=== PATIENT | male | born 1975 | race Caucasian/White ===

== ENCOUNTER 2022-05-22 00:32 | Emergency (ER) | payer BC, MEDICAID, OTHER ==
[~2022-05-22] VITALS: Ht 188 cm; Wt 62.6 kg
[2022-05-22] MEDS ORDERED: HYDROcodone-ACET 5/325MG TAB PO ONE (00:45)
[2022-05-22] MEDS ORDERED: cloNIDine HCL 0.1 MG TAB PO ONE (00:45)
[2022-05-22 01:33] LABS: Albumin 3.6 g/dL (3.4-5.0); BUN/Creatinine Ratio 18.7 (10.0-20.0); Calcium 8.7 mg/dL (8.5-10.1); Magnesium 2.3 mg/dL (1.6-2.6); Potassium 3.4 mmol/L (3.5-5.1)
[2022-05-22 01:36] LABS: Bilirubin, Total 0.4 mg/dL (0.2-1.0); Total Protein 7.9 g/dL (6.4-8.2)
[2022-05-22 01:38] LABS: Basophils # (auto) 0 10 ^3/uL (0-0.2); Basophils % (auto) 0.4 % (0.0-2.0); Eosinophils # (auto) 0.2 10 ^3/uL (0-0.8); Eosinophils % (auto) 1.8 % (0.0-7.0); Hemoglobin 15.5 g/dL (13.5-17.5); Lymphocytes % (auto) 33.2 % (10.0-50.0); Mean Corpuscular Hemoglobin 30.6 pg (28.0-32.0); Mean Corpuscular Hgb Conc. 35.2 g/dL (32.0-36.0); Mean Corpuscular Volume 86.9 fL (80.0-100.0); Monocytes # (auto) 0.6 10 ^3/uL (0-1.3); Monocytes % (auto) 6.5 % (0.0-12.0); Neutrophils # (auto) 5.2 10 ^3/uL (1.6-8.6); Neutrophils % (auto) 58.1 % (37.0-80.0); Nucleated Red Blood Cells % 0.4 %; Red Blood Cells 5.07 10^6/uL (4.5-5.90); Red Cell Distribution Width 13.5 % (11.8-14.3); White Blood Cell 8.9 10^3/uL (4.4-10.8)
[2022-05-22] MEDS ORDERED: IOHEXOL 350 MG/ML 100ML IJ ONE (03:14)
[2022-05-22] MEDS ORDERED: MAALOX PLUS or MAALOX 30 ML PO ONE (03:15)
[2022-05-22] MEDS ORDERED: PANTOPRAZOLE 40 MG TAB PO ONE (03:15)
[2022-05-22] MEDS ORDERED: MORPHINE SULFATE INJ 2 MG/ml SYRG IM ONE (03:15)
[2022-05-22] MEDS ORDERED: ONDA-144 PO (04:38)
[2022-05-22] MEDS ORDERED: SUCR1TAB22 OR (04:40)
[2022-05-22 05:55] VITALS: BP 145/73
== END 2022-05-22 05:59 | disposition home or self-care (01) ==
LOC: ER 00:32 → EDBD 00:32 → ER 05:59
DX: R10.13 Epigastric pain (principal); R11.2 Nausea with vomiting, unspecified; K21.9 Gastro-esophageal reflux disease without esophagitis; I10 Essential (primary) hypertension; Z90.49 Acquired absence of other specified parts of digestive tract; Z87.891 Personal history of nicotine dependence
CPT/HCPCS: 36415; 74177; 80053; 83690; 83735; 84484; 85025; 96372; 99285; J2270; Q9967